=== PATIENT | male | born 1980 | race Caucasian/White ===

== ENCOUNTER 2021-11-10 01:39 | Day surgery (SDC) | payer OTHER, SELFPAY ==
[2021-11-04 15:46] VITALS: BMI 25.9
--- NOTE | 2021-11-10 10:46 | P.PNAN_ITS ---
Anes - Initial Pre Proc Eval Procedure: Operation Date: 11/10/21 13:00 Proposed Procedures p Esophagogastroduodenoscopy - Prashant Roach MD Date/Time: 11/10/21 10:46 Surgeon: Prashant Roach MD Pre Op Diagnosis: GERD, globus pharyngeus, epigastric pain Patient Data Age: 41 Gender: M Height: 1.68 m Weight: 73 kg Allergies Allergy/AdvReac Type Severity Reaction Status Date / Time No Known Allergies Allergy Unknown Verified 11/10/21 11:33 Home Medications Medication Instructions Recorded Confirmed Type omeprazole 20 mg capsule,delayed 20 mg PO DAILY 06/01/19 11/04/21 History release Patient hx anesthesia problems: none Family hx anesthesia problems: none Results Review: All pre-operative results and documents have been reviewed as part of the pre- operative evaluation. [facility] Family History Family History Father Hypertension Family history of elevated blood lipids Grandparent Hypertension Family history of elevated blood lipids Acute myocardial infarction Cerebrovascular accident Carcinoma of colon Malignant neoplasm of prostate Family history of malignant neoplasm of brain Social History Social History (Reviewed 06/09/21 @ 09:19 by Karishma Beavers [facility]) Smoking status: Unknown if ever smoked (Uses chewing tobacco) Tobacco type: smokeless tobacco Smokeless tobacco user: chewing tobacco Alcohol intake: current Alcohol use details: socially Substance use: never Substance use type: does not use Living arrangements: with family Spiritual care concerns: No Anes - Eval Final PreProcedure Day of Procedure 11/10/21 10:46 Patient weight: overweight Heart: regular rate and rhythm Lungs: clear to auscultation Airway: Mallampati scale class II Neurological: alert and oriented Last oral intake: >/= 8 hours ASA classification: II Emergent: no Anesthetic plan: proceed Anesthesia type and monitoring: general GIVS and standard monitoring Results Review: All pre-operative results and documents have been reviewed as part of the pre- operative evaluation. Informed Consent: The patient's anesthetic plan and its attendant risks and benefits were discussed with the patient/family/POA. Questions were solicited and answers provided to the satisfaction of the patient/family/POA.
[2021-11-10 11:33] VITALS: BP 141/104; PULSE 73; RESP 18; TEMP 36.4; O2SAT 99
[2021-11-10] MEDS: LACTATED RINGERS 1,000 ML 150 ML IV CONT (11:36)
--- NOTE | 2021-11-10 12:05 | PM.IMHP ---
H&P: HPI History of Present Illness Date/Time: 11/10/21 12:05 Chief Complaint: Heartburn and globus phenomenon Narrative: this is a 41-year-old white male patient with a history of heartburn and acid reflux. He has been on omeprazole 20mg p.o. daily for some time with good control of this. Over the last several months has noticed a lump in his throat. He states this does not hinder swallowing. He was seen by ENT and erythema was identified for this reason omeprazole increased to b.i.d. dose with no change in symptoms. Patient is referred today for further evaluation. He denies any weight loss. He has had no bleeding. Review of Systems Review of Systems: Review of systems noncontributory. [facility] Family History Family History Father Hypertension Family history of elevated blood lipids Grandparent Hypertension Family history of elevated blood lipids Acute myocardial infarction Cerebrovascular accident Carcinoma of colon Malignant neoplasm of prostate Family history of malignant neoplasm of brain Social History Social History Smoking status: Unknown if ever smoked (Uses chewing tobacco) Tobacco type: smokeless tobacco Smokeless tobacco user: chewing tobacco Alcohol intake: current Alcohol use details: socially Substance use: never Substance use type: does not use Living arrangements: with family Spiritual care concerns: No Meds Home Medications and Allergies Home Medications Medication Instructions Recorded Confirmed Type omeprazole 20 mg capsule,delayed 20 mg PO DAILY 06/01/19 11/04/21 History release Allergies Allergy/AdvReac Type Severity Reaction Status Date / Time No Known Allergies Allergy Unknown Verified 11/10/21 11:33 Vital Signs Vital Signs - 24 hr 11/10/21 11:33 Temperature 97.6 F Pulse Rate 73 Respiratory Rate 18 Blood Pressure 141/104 H Pulse Oximetry 99 Oxygen Delivery Room Air Exam Narrative: Physical exam reveals patient to be alert. Vital signs stable. HEENT exam is unremarkable. Patient is anicteric. Lungs are clear to auscultation and percussion. Heart is without murmur or extra sounds. Abdomen bowel sounds present soft nontender with no organomegaly. Assessment and Plan Assessment and plan (1) Gastro-esophageal reflux disease without esophagitis: Code(s): K21.9 - Gastro-esophageal reflux disease without esophagitis Status: Acute Assessment and Plan: Patient with longstanding symptoms of heartburn and GE reflux adequately treated on omeprazole 20mg p.o. daily. He recently has symptoms of globus phenomenon that did not improved on doubling this dose. He is referred now for EGD. Further recommendations will be given after endoscopy. (2) Globus pharyngeus: Code(s): R09.89 - Other specified symptoms and signs involving the circulatory and respiratory systems Status: Acute Assessment and Plan: Patient describes a lump in his throat that does not hinder swallowing. He does have a history of acid reflux. This symptoms have not improved on a doubling of his acid reflux medication. Plan for EGD if PPI therapy fails to improve this a low dose of Elavil may be of some benefit at bedtime.
[2021-11-10 12:18] VITALS: BP 115/89; PULSE 84; RESP 21; O2SAT 99
[2021-11-10 12:28] VITALS: BP 128/96; PULSE 79; RESP 15; O2SAT 98
[2021-11-10 12:38] VITALS: BP 125/75; PULSE 70; RESP 16; O2SAT 99
== END 2021-11-10 12:44 | disposition home or self-care (01) ==
PROVIDERS: PCP Family Medicine; Visit Provider Internal Medicine Gastroenterology
PROC: 0DJ08ZZ Inspection of Upper Intestinal Tract, Via Natural or Artificial Opening Endoscopic (ICD-10-PCS; CPT 43235; principal; 2021-11-10 13:00)
DX: K21.9 Gastro-esophageal reflux disease without esophagitis (principal); F45.8 Other somatoform disorders; R12 Heartburn; F17.220 Nicotine dependence, chewing tobacco, uncomplicated
CPT/HCPCS: 43235; J2704; J7120

== ENCOUNTER 2023-08-08 21:05 | Emergency (ER) | payer BC, SELFPAY ==
--- NOTE | ~2023-08-08 | XR_ITS ---
Clinical Indication: Chest pain PA and lateral views of the chest: Comparison: 02/26/2013 Findings: The lungs are clear, without evidence of focal consolidation or pleural effusion. Cardiome diastinal silhouette is within normal limits. Bones and soft tissues are unremarkable. Impression: Normal chest. Reviewed, dictated and finalized at location . Impression: Normal chest.
[2023-08-08 21:13] VITALS: BP 165/117; PULSE 81; RESP 18; TEMP 36.8; O2SAT 100
--- NOTE | 2023-08-08 21:18 | ECG_ITS ---
SEE SCANNED COPY FOR CONFIRMED REPORT MTDD
--- NOTE | 2023-08-08 23:11 | PC.NURSE ---
this rn assumed care of patient.
--- NOTE | 2023-08-08 23:20 | ED.CHESTPAIN ---
HPI - Chest Pain General Chief Complaint: Chest Pain Stated Complaint: chest pain x3, htn Time Seen by Provider: 08/08/23 23:03 History of Present Illness HPI narrative: 42-year-old male with history of hypertension and hyperlipidemia presents to emergency department for chest pressure x3 days. Patient states the pressure is located in his right anterior chest wall and is nonradiating. Denies aggravating or alleviating factors. He reports ?a little? shortness of breath. States he has been feeling more fatigued the past couple of days so he took his blood pressure today and was found to be 168/123 which alarmed him and prompted him to come to the ED. He takes metoprolol for hypertension which was recently started 2 months ago after discontinuation of lisinopril due to a cough by his PCP. States he has not followed up with his PCP since changing his medication. He is also prescribed atorvastatin but has not been taking this because ?I just have not?. States he has been taking his metoprolol daily. He denies cough, congestion, fever, hemoptysis, recent surgery hospitalizations, abdominal pain, nausea vomiting, diaphoresis, lower extremity edema, history of VTE. He denies prior personal cardiac history but does endorse family cardiac history. He does not smoke tobacco but does chew tobacco. Related Data Home Medications Medication Instructions Recorded Confirmed omeprazole 20 mg capsule,delayed 20 mg PO DAILY 06/01/19 05/20/23 release Allergies Allergy/AdvReac Type Severity Reaction Status Date / Time No Known Allergies Allergy Unknown Verified 08/08/23 21:06 [facility] Family History Family History Father Hypertension Family history of elevated blood lipids Grandparent Hypertension Family history of elevated blood lipids Acute myocardial infarction Cerebrovascular accident Carcinoma of colon Malignant neoplasm of prostate Family history of malignant neoplasm of brain Social History Social History Smoking status: Never smoker (Uses chewing tobacco) Tobacco type: smokeless tobacco Smokeless tobacco user: chewing tobacco Alcohol intake: current Alcohol use details: socially Substance use: never Substance use type: does not use Lack of Transportation: No Lack of Food: Never True Current Housing: I Have Housing Concerned About Future Housing: No Difficulty Paying Gas/Electric Bills: No Difficulty Paying for Meds: No Currently Unemployed: No Education: Associate Degree Difficulty w/ Childcare or Family Care: No Living arrangements: with family Spiritual care concerns: No Course Vital Signs Vital signs: Vital Signs Temperature 98.2 F 08/08/23 21:13 Pulse Rate 81 08/08/23 21:13 Respiratory Rate 18 08/08/23 21:13 Blood Pressure 165/117 H 08/08/23 21:13 Pulse Oximetry 100 08/08/23 21:13 Oxygen Delivery Room Air 08/08/23 21:13 Temperature 98.2 F 08/08/23 21:13 Pulse Rate 65 08/09/23 01:09 Respiratory Rate 18 08/09/23 01:31 Blood Pressure 127/95 H 08/09/23 01:31 Pulse Oximetry 97 08/09/23 01:31 Oxygen Delivery Room Air 08/08/23 23:56 MDM - Chest Pain MDM Narrative Medical decision making narrative: 42-year-old male with history of hypertension and hyperlipidemia presents to emergency department for chest pressure x3 days. Triage vital significant for hypertension of 165/117, otherwise unremarkable. Patient is well-appearing on exam, see above. EKG shows sinus rhythm with a rate of 60 ppm, lad, nonspecific T-wave inversions, no ST elevations or depressions. Initial troponin negative. CBC and chemistries are unremarkable. Chest x-ray shows no acute cardiopulmonary disease. He is PERC negative. Labs and imaging discussed with the patient. His blood pressure improved to 127/90 without intervention. He is reque
[2023-08-08 23:49] VITALS: BP 141/100; PULSE 58; RESP 20; O2SAT 95
[2023-08-08 23:56] VITALS: O2SAT 100
[2023-08-09] VITALS (7 sets, daily range): BP systolic 127–142; BP diastolic 95–105; PULSE 54–68; RESP 9–25; O2SAT 95–99
[2023-08-09 00:07] LABS: Basophils Percent Auto 0.4 % (0.2-1.2); Eosinophils Absolute Auto 0.2 K/mm3 (0-0.3); Eosinophils Percent Auto 2.1 % (0-4.4); Hematocrit 48.6 % (42.0-52.0); Hemoglobin 16.2 g/dL (14.0-18.0); Immature Granulocyte Absolute 0.03 K/mm3 (0.00-0.031); Immature Granulocyte Percent A 0.3 % (0-0.5); Lymphocytes Absolute Auto 2.84 K/mm3 (0.9-3.2); Lymphocytes Percent Auto 31.7 % (18.3-44.2); Mean Corpuscular HGB Conc 33.3 g/dl (32-36); Mean Corpuscular Hemoglobin 30.4 pg (26-34); Mean Corpuscular Volume 91.2 fl (80-100); Mean Platelet Volume 9.8 fl (7.4-10.4); Monocytes Absolute Auto 0.9 K/mm3 (0.1-0.6); Monocytes Percent Auto 9.8 % (2.6-8.5); Neutrophils Percent Auto 55.7 % (45.5-73.1); Platelet Count Result 251 k/mm3 (150-375); Red Blood Count 5.33 M/mm3 (4.6-6.20); Red Cell Distribution Width 11.9 % (11.5-14.5)
[2023-08-09 00:25] LABS: Alanine Aminotransferase 42 U/L (6-50); Albumin Level 4.6 g/dL (3.5-5.1); Alkaline Phosphatase 71 U/L (38-126); Anion Gap 7 mmol/L (4-12); Aspartate Amino Transferase 34 U/L (17-59); Bilirubin,Total 0.6 mg/dL (0.2-1.3); Blood Urea Nitrogen 16 mg/dL (9-20); Calcium 9.4 mg/dL (8.4-10.2); Carbon Dioxide 26 mmol/L (22-30); Chloride 104 mmol/L (98-107); Estimated CRCL calculation 98 ml/min; Estimated Glomerular Filt Rate > 60; Glucose 98 mg/dL (65-110); Lipase 47 U/L (23-300); Potassium 4.1 mmol/L (3.4-5.0); Sodium 137 mmol/L (137-145)
[2023-08-09 00:37] LABS: NT Pro B Type Natriuretic Pept 28 pg/mL (19.9-100); Troponin I < 0.012 ng/mL (0.000-0.034)
[2023-08-09 02:06] LABS: Partial Thromboplastin Time 25.3 Seconds (22.3-36.8)
[2023-08-09 02:34] LABS: Prothrombin Time 13.3 Seconds (11.1-14.7)
== END 2023-08-09 02:06 | disposition home or self-care (01) ==
PROVIDERS: Emergency Provider Physician Assistant; PCP Family Medicine
DX: R07.89 Other chest pain (principal); E78.5 Hyperlipidemia, unspecified; I10 Essential (primary) hypertension; F17.220 Nicotine dependence, chewing tobacco, uncomplicated; T46.6X6A Underdosing of antihyperlipidemic and antiarteriosclerotic drugs, initial encounter; Z91.128 Patient's intentional underdosing of medication regimen for other reason; R94.31 Abnormal electrocardiogram [ECG] [EKG]
CPT/HCPCS: 36415; 71046; 80053; 83690; 83880; 84484; 85025; 85610; 85730; 93005; 99284

== ENCOUNTER 2024-11-24 13:21 | Emergency (ER) | payer BC, SELFPAY ==
[2024-11-24] VITALS (8 sets, daily range): BP systolic 109–162; BP diastolic 86–99; PULSE 57–96; RESP 15–21; TEMP 35.9; O2SAT 97–99
--- NOTE | ~2024-11-24 | XR_ITS ---
EXAMINATION: XR chest 2V, 11/24/2024 14:01 CDT HISTORY: chest pressure COMPARISON: No comparisons available. Technique: 2 views obtained. Findings: The lungs are clear, no effusion. No pneumothorax. Heart is normal size. Mediastinal and hilar contours are within normal limits. Bony thorax no acute abnormality. Impression: No acute cardiopulmonary abnormality. Reviewed, dictated and finalized at location A. Impression: No acute cardiopulmonary abnormality.
--- NOTE | 2024-11-24 13:22 | ECG_ITS ---
Test Date: 2024-11-24 13:27:30 Measurements Intervals Roland Rate: 70 P: 15 FL: 149 QRS: 5 QRSD: 98 T: 0 QT: 370 QTc: 399 Interpretive Statements SINUS RHYTHM VOLTAGE CRITERIA FOR LVH MINIMAL Q WAVES- HIGH LATERAL LEADS BORDERLINE T WAVE ABNORMALITY- INFERIOR LEADS BASELINE ARTIFACT- I, II, AVR, AVL, V1, V4-V6 BORDERLINE ECG No previous ECG available for comparison Electronically Signed On 11-24-2024 13:30:58 CDT by Jacob Quinonez D.O.
--- OUTSIDE RECORDS SUMMARY | 2024-11-24 13:23 | XMS_ITS | Encounter Summary ---
Author Organization [facility] Healthcare Address [address] [place] [address] Care Team Providers Care Magnetic Resonance Technologist Name Role Phone Yamilex Car Primary Care Provider Encounter Details Date Type Department Care Team (Late st Contact Info) Description 07/24/2020 Telephone [facility] [id number] [place] [address] Nisha Del Real RT Social History Tobacco Use Types Packs/Day Years Used Date Smoking Tobacco: Never Smokeless Tobacco: Current Chew Sex and Gender Information Value Date Recorded Sex Assigned at Not on file Legal Sex Male 9:56 PM CDT Gender Identity Not on file Sexual Orientation Not on file documented as of this encounter Plan of Treatment Not on file documented as of this encounter Visit Diagnoses Not on filedocumented in this encounter Care Teams Magnetic Resonance Technologist Relationship Specialty Start Date End Date Yamilex Car PA [address] [place] [address] PCP - General Physician Gym Manager 06/10/20 documented as of this encounter
--- OUTSIDE RECORDS SUMMARY | 2024-11-24 13:23 | XMS_ITS | Clinical Summary ---
Author Organization [facility] Address [address] [place] [address] Care Team Providers Care Rotor Casting Machine Operator Name Role Phone Yamilex Car Primary Care Provider Allergies No known active allergies Medications atorvastatin (LIPITOR) 10 mg tablet Take 1 tablet (10 mg total) by mouth daily 03/31/2020 Active omeprazole (PriLOSEC) 20 mg capsule Take 1 capsule (20 mg total) by mouth daily Active hydroCHLOROthia zide 12.5 mg tablet 09/10/2023 Active Active Problems Problem Noted Date Diagnosed Date Dietary counseling 10/07/2020 Family history of premature CAD 07/08/2020 Pure hypercholesterolemia 07/08/2020 Surgical History Surgery Date Site/Laterality Comments NO PAST SURGERIES Medical History Medical History Date Comments Hyperlipidemia Acid indigestion Family History Medical History Relation Name Comments No Known Problems Father Heart disease Father's Sister Cancer Mother Heart attack Paternal Grandfather No Known Problems Sister Relation Name Status Comments Father Alive Father's Sister Alive Mother (Age 55) Paternal Grandfather (Age 71) Sister Alive Social History Tobacco Use Types Packs/Day Years Used Date Smoking Tobacco: Never Smokeless Tobacco: Current Chew Sex and Gender Information Value Date Recorded Sex Assigned at Not on file Legal Sex Male 9:56 PM CDT Gender Identity Not on file Sexual Orientation Not on file Obstetrics History Last Filed Vital Signs Vital Sign Reading Time Taken Comments Blood Pressure 140/108 09/11/2023 9:56 AM CDT at [id number] this morning before taking BP med - took med a half hour ago. New BP med started yesterday. Pulse 57 09/11/2023 9:56 AM CDT Temperature 36.4 C (97.6 F) 09/11/2023 9:56 AM CDT Respiratory Rate 16 09/11/2023 9:56 AM CDT Oxygen Saturation 97% 09/11/2023 9:5 6 AM CDT Inhaled Oxygen Concentration - - Weight 81.3 kg (179 lb 3.2 oz) 09/11/2023 9:56 AM CDT Height 170.2 cm (5' 7) 09/11/2023 9:56 AM CDT Body Mass Index 28.07 09/11/2023 9:56 AM CDT Plan of Treatment Health Maintenance Due Date Last Done Comments Depression Screening 1981 Hepatitis C Screening 1981 DTaP/Tdap/Td Vaccine (1 - Tdap) 1992 Varicella Vaccines (1 of 2 - 13+ 2-dose series) 1994 Regular Well Visit/Exam 18-64 10/31/1999 HPV Vaccines (1 - 3-dose SCD M series) 2008 Influenza Vaccine (#1) 2024 Hepatitis B Screening Completed 05/16/2013 , 12/09/2012, 11/07/2012 Pneumococcal vaccine <65 Aged Out No longer eligible based on patient's age to complete this topic Insurance [employer] BLUE ACCESS [place] Care Teams Rotor Casting Machine Operator Relationship Specialty Start Date End Date Yamilex Car PA [address] [place] [address] PCP - General Physician Histotechnologist 06/10/20
--- OUTSIDE RECORDS SUMMARY | 2024-11-24 13:23 | XMS_ITS | Encounter Summary ---
Author Organization [facility] Healthcare Address [address] [place] [address] Care Team Providers Care Stock Order Lister Name Role Phone Yamilex Car Primary Care Provider Encounter Details Date Type Department Care Team (Late st Contact Info) Description 08/07/2020 Telephone [facility] [id number] [place] [address] Nisha Del Real RT Social History Tobacco [...] on filedocumented in this encounter Care Teams Stock Order Lister Relationship Specialty Start Date End Date Yamilex Car PA [address] [place] [address] PCP - General Physician Wet Inspector Optical Glass 06/10/20 documented as of this encounter
[2024-11-24 13:43] LABS: Hematocrit 48.8 % (42.0-52.0); Hemoglobin 16.3 g/dL (14.0-18.0); Immature Granulocyte Percent A 0.3 % (0-0.5); Lymphocytes Absolute Auto 1.93 K/mm3 (0.9-3.2); Mean Corpuscular HGB Conc 33.4 g/dl (32-36); Mean Corpuscular Hemoglobin 30.2 pg (26-34); Mean Corpuscular Volume 90.5 fl (80-100); Nucleated Red Blood Cells Absolute Auto 0.000 K/mm3 (0.0-0.012); Nucleated Red Blood Cells Perc 0.0 % (0.0-0.2); Platelet Count Result 246 k/mm3 (150-375); Red Blood Count 5.39 M/mm3 (4.6-6.20); White Blood Count 7.8 K/mm3 (4.5-10.0)
[2024-11-24 13:58] LABS: INR 1.0; Partial Thromboplastin Time 24.6 Seconds (22.3-36.8); Prothrombin Time 13.2 Seconds (11.1-14.7)
[2024-11-24 14:02] LABS: Alanine Aminotransferase 26 U/L (6-50); Albumin Level 4.4 g/dL (3.5-5.1); Alkaline Phosphatase 67 U/L (38-126); Anion Gap 10 mmol/L (4-12); Aspartate Amino Transferase 25 U/L (17-59); Bilirubin,Total 0.6 mg/dL (0.2-1.3); Blood Urea Nitrogen 20 mg/dL (9-20); Calcium 9.4 mg/dL (8.4-10.2); Carbon Dioxide 27 mmol/L (22-30); Chloride 103 mmol/L (98-107); Estimated CRCL calculation 70 ml/min; Estimated Glomerular Filt Rate > 60; Glucose 80 mg/dL (65-110); Lipase 53 U/L (23-300); Potassium 4.0 mmol/L (3.4-5.0); Sodium 140 mmol/L (137-145); Total Protein 7.7 g/dL (6.3-8.2)
[2024-11-24 14:09] LABS: Troponin I < 0.012 ng/mL (0.000-0.034)
--- OUTSIDE RECORDS SUMMARY | 2024-11-24 14:28 | XMS_ITS | Clinical Summary ---
Author Organization [facility] Address [address] [place] [address] Care Team Providers Care Circus Supervisor Name Role Phone Yamilex Car Primary Care [...] Pressure 140/108 09/11/2023 9:56 AM CDT at [id number] this morning before taking BP med - [...] patient's age to complete this topic Insurance [employer] BLUE ACCESS [place] Care Teams Circus Supervisor Relationship Specialty Start Date End Date Yamilex Car PA [address] [place] [address] PCP - General Physician Operations Business Partner 06/10/20
--- OUTSIDE RECORDS SUMMARY | 2024-11-24 14:28 | XMS_ITS | Encounter Summary ---
Author Organization [facility] Healthcare Address [address] [place] [id number] Care Team Providers Care Commutator Undercutter Name Role Phone Yamilex Car Primary Care Provider Encounter Details Date Type Department Care Team (Late st Contact Info) Description 08/07/2020 Telephone [facility] [id number] [place] [address] Nisha Del Real RT Social History Tobacco [...] on filedocumented in this encounter Care Teams Commutator Undercutter Relationship Specialty Start Date End Date Yamilex Car PA [address] [place] [address] PCP - General Physician Head Coach 06/10/20 documented as of this encounter
--- OUTSIDE RECORDS SUMMARY | 2024-11-24 14:28 | XMS_ITS | Encounter Summary ---
Author Organization [facility] Healthcare Address [address] [place] [address] Care Team Providers Care Surveillance Monitor Name Role Phone Yamilex Car Primary Care Provider Encounter Details Date Type Department Care Team (Late st Contact Info) Description 07/24/2020 Telephone [facility] [address] [place] [address] Nisha Del Real RT Social History Tobacco [...] on filedocumented in this encounter Care Teams Surveillance Monitor Relationship Specialty Start Date End Date Yamilex Car PA [address] [place] [address] PCP - General Physician Solar Consultant 06/10/20 documented as of this encounter
--- NOTE | 2024-11-24 15:02 | ED.GENADULT ---
HPI - General Adult General Chief complaint: Chest Pain Stated complaint: chest pressure, high BP Time Seen by Provider: 11/24/24 14:20 History of Present Illness HPI narrative: 44-year-old male present to the emergency department for evaluation for chest tightness. Patient states he was having some chest tightness that started this morning. Patient reports pain is worsened when taking a breath. Patient denies any sharp pain. Patient denies any radiation the tightness to his back neck or arm. Patient does have history of high blood pressure does take his blood pressure medications. Patient does report prior history of high cholesterol but does not take cholesterol medications. Patient is not diabetic. Patient has no prior history of coronary artery disease and has never had a stress test. Patient does not smoke but does chew tobacco. Related Data Home Medications ?Medication ?Instructions ?Recorded ?Confirmed ?Last Taken ?Type omeprazole 20 mg capsule,delayed 20 mg PO DAILY 06/01/19 01/18/24 11/09/21 History release Allergies Allergy/AdvReac Type Severity Reaction Status Date / Time No Known Allergies Allergy Unknown Verified 11/24/24 13:34 Review of Systems Review of Systems: All systems reviewed & are unremarkable except as noted in HPI and below PMFSH Past Medical History Medical History (Updated 11/24/24 @ 18:00 by Daniel Smith MD) Tonsil asymmetry Family History Family History Father Hypertension Family history of elevated blood lipids Grandparent Hypertension Family history of elevated blood lipids Acute myocardial infarction Cerebrovascular accident Carcinoma of colon Malignant neoplasm of prostate Family history of malignant neoplasm of brain Social History Social History (Updated 07/10/24 @ 09:19 by Barbie Young) Social History: Caffeine-coffee Smoking status: Never smoker (Uses chewing tobacco) Tobacco type: smokeless tobacco Smokeless tobacco user: chewing tobacco Alcohol intake: current Alcohol use details: socially Substance use: never Substance use type: does not use Do You Feel Safe in your Home?: Yes Lack of Transportation: No Lack of Food: Never True Current Housing: I Have Housing Concerned About Future Housing: No Difficulty Paying Gas/Electric Bills: No Difficulty Paying for Meds: No Currently Unemployed: No Education: Associate Degree Difficulty w/ Childcare or Family Care: No Living arrangements: with family Spiritual care concerns: No Exam Narrative: APPEARANCE: Well appearing, no pain, no distress, well-nourished. HEAD: normocephalic, atraumatic. EYES: PERRLA/EOMI, conjunctivae clear. NOSE: Normal no drainage EARS:TMS clear with good light reflex. THROAT: Pharynx clear, no exudate. NECK: Supple. No adenopathy, no masses. RESPIRATORY: Airway patent, respirations nonlabored. Clear to auscultation bilaterally, no rales, rhonchi, wheezing. CARDIOVASCULAR: Regular rate and rhythm without murmurs rubs or gallops. ABDOMINAL: Soft, nontender, nondistended, normal bowel sounds MUSCULOSKELETAL: Reproducible chest wall tenderness to palpation NEURO: Alert. Cranial nerves II through XII intact. Good gait. Good coordination SKIN: Warm, dry. Normal Color Course Vital Signs Vital signs: Vital Signs Temperature 96.7 F L 11/24/24 13:34 Pulse Rate 96 11/24/24 13:34 Respiratory Rate 20 11/24/24 13:34 Blood Pressure 162/99 H 11/24/24 13:34 Pulse Oximetry 98 11/24/24 13:34 Oxygen Delivery Room Air 11/24/24 13:34 Temperature 96.7 F L 11/24/24 13:34 Pulse Rate 60 11/24/24 17:01 Respiratory Rate 15 11/24/24 17:01 Blood Pressure 109/86 11/24/24 17:01 Pulse Oximetry 97 11/24/24 17:01 Oxygen Delivery Room Air 11/24/24 14:35 Medical Decision Making [facility] Narrative Medical decision making narrative: 44-year-old male presenting to the emergency department for evaluation for chest tightness. Patient states symptoms were improved with Toradol and an albuterol treatment. Patient is currently afebrile with no leukocytosis and a hemoglobin of 16.3. Patient's INR is 1.0 D-dimer was not elevated. Patient had negative serial troponins and no acute abnormalities on his CMP. As patient was improved on re-evaluation patient was comfortable plan for discharge and close follow-up with primary care physician for additional outpatient cardiac testing such as a stress test. Low concern for ACS, pneumonia, pulmonary embolism. Patient's symptoms may be secondary to underlying viral etiology versus seasonal allergies. Differential Diagnosis Differential Diagnosis: COVID, RSV, influenza, pneumonia, pneumothorax, ACS, pulmonary embolism, seasonal allergies my asthma, COPD Vital Signs Vital Signs: Vital Signs Temperature 96.7 F L 11/24/24 13:34 Pulse Rate 96 11/24/24 13:34 Respiratory Rate 20 11/24/24 13:34 Blood Pressure 162/99 H 11/24/24 13:34 Pulse Oximetry 98 11/24/24 13:34 Oxygen Delivery Room Air 11/24/24 13:34 Temperature 96.7 F L 11/24/24 13:34 Pulse Rate 60 11/24/24 17:01 Respiratory Rate 15 11/24/24 17:01 Blood Pressure 109/86 11/24/24 17:01 Pulse Oximetry 97 11/24/24 17:01 Oxygen Delivery Room Air 11/24/24 14:35 Lab Data Lab results reviewed: Yes I reviewed the patient's lab results. 11/24/24 13:35 11/24/24 13:35 Labs: Lab Results 11/24/24 11/24/24 Range/Units 13:35 16:50 WBC 7.8 (4.5-10.0) K/mm3 RBC 5.39 (4.6-6.20) M/mm3 Hgb 16.3 (14.0-18.0) g/dL Hct 48.8 (42.0-52.0) % MCV 90.5 (80-100) fl MCH 30.2 (26-34) pg MCHC 33.4 (32-36) g/dl RDW 12.0 (11.5-14.5) % Plt Count 246 (150-375) k/mm3 MPV 9.5 (7.4-10.4) fl Immature Gran % (Auto) 0.3 (0-0.5) % Neut % (Auto) 62.6 (45.5-73.1) % Lymph % (Auto) 24.9 (18.3-44.2) % [place] % (Auto) 9.9 H (2.6-8.5) % Eos % (Auto) 1.9 (0-4.4) % Baso % (Auto) 0.4 (0.2-1.2) % Lymph # (Auto) 1.93 (0.9-3.2) K/mm3 [place] # (Auto) 0.8 H (0.1-0.6) K/mm3 Eos # (Auto) 0.2 (0-0.3) K/mm3 Baso # (Auto) 0.0 (0.0-0.1) K/mm3 Abs Immat Gran (auto) 0.02 (0.00-0.031) K/mm3 Absolute Neuts (auto) 4.9 (1.3-6.7) K/mm3 Absolute Nucleated RBC 0.000 (0.0-0.012) K/mm3 Nucleated RBC % 0.0 (0.0-0.2) % PT 13.2 (11.1-14.7) Seconds INR 1.0 APTT 24.6 (22.3-36.8) Seconds D-Dimer < 0.27 (<0.48) ug/mL Sodium 140 (137-145) mmol/L Potassium 4.0 (3.4-5.0) mmol/L Chloride 103 (98-107) mmol/L Carbon Dioxide 27 (22-30) mmol/L Anion Gap 10 (4-12) mmol/L BUN 20 (9-20) mg/dL Creatinine 1.09 (0.7-1.3) mg/dL Estim Creat Clear Calc 70 ml/min Estimated GFR > 60 (59 - ) Glucose 80 (65-110) mg/dL Calcium 9.4 (8.4-10.2) mg/dL Total Bilirubin 0.6 (0.2-1.3) mg/dL AST 25 (17-59) U/L ALT 26 (6-50) U/L Alkaline Phosphatase 67 (38-126) U/L Troponin I < 0.012 < 0.012 (0.000-0.034) ng/mL Total Protein 7.7 (6.3-8.2) g/dL Albumin 4.4 (3.5-5.1) g/dL Lipase 53 (23-300) U/L Imaging Data Radiologist's impression: Impressions Chest X-Ray 11/24/24 14:28 Impression: No acute cardiopulmonary abnormality. ECG Data EKG #1: EKG Interpretation: bradycardia, sinus rhythm, no ectopy, non-specific ST changes, normal QRS, normal QT and NL axis Discharge Plan Discharge Clinical Impression: Chest tightness Patient Disposition: Home Condition: Stable Instructions: Antibiotic Form, Chest Pain (ED) Additional Instructions: Albuterol inhaler for shortness of breath, ibuprofen for pain control. Have close follow-up with your primary care physician for additional outpatient cardiac testing. Patient Language: Frisian Prescriptions: New albuterol sulfate 90 mcg/actuation HFA aerosol inhaler 1 puff inhalation QID Qty: 6.7 0RF No Action omeprazole 20 mg capsule,delayed release(DR/EC) 20 mg PO DAILY metoprolol succinate 50 mg tablet extended release 24 hr 50 mg PO DAILY Qty: 30 0RF Rx Instructions: LAST REFILL, NEEDS APPOINTMENT Follow-up/Referrals: Amparo Fam DO [Primary Care Provider, [facility]] Quality HEART score for chest pain patients History: slightly suspicious ECG: normal Age: < or = to 45 years Risk factors: 1 or 2 risk factors Troponin: < or = to 1x normal limit Heart score: 1
[2024-11-24] MEDS: ALBUTEROL SULFATE NEB 2.5 MG/3 ML INH 5 MG INHALATION (15:05)
[2024-11-24] MEDS: KETOROLAC 30 MG/ML VIAL (*BKC) IM (16:11)
--- NOTE | 2024-11-24 16:45 | ECG_ITS ---
Test Date: 2024-11-24 16:49:19 Measurements Intervals [place] Rate: 50 P: 7 MT: 169 QRS: 3 QRSD: 94 T: -2 QT: 394 QTc: 362 Interpretive Statements SINUS BRADYCARDIA WITH SINUS ARRHYTHMIA VOLTAGE CRITERIA FOR LVH MINIMAL Q WAVES- HIGH LATERAL LEADS BORDERLINE ST-T WAVE ABNORMALITY- INFERIOR LEADS BASELINE ARTIFACT- I, II, AVR, AVL, AVF BORDERLINE ECG Compared to ECG 11/24/2024 13:27:30 HEART RATE HAS DECREASED Electronically Signed On 11-24-2024 19:37:07 CDT by Jacob Quinonez D.O.
[2024-11-24 17:19] LABS: Troponin I < 0.012 ng/mL (0.000-0.034)
== END 2024-11-24 18:12 | disposition home or self-care (01) ==
PROVIDERS: Emergency Medicine; Emergency Provider Emergency Medicine; PCP Family Medicine
DX: R07.89 Other chest pain (principal); I10 Essential (primary) hypertension; F17.220 Nicotine dependence, chewing tobacco, uncomplicated; Z79.899 Other long term (current) drug therapy; R00.1 Bradycardia, unspecified; R94.31 Abnormal electrocardiogram [ECG] [EKG]
CPT/HCPCS: 36415; 71046; 80053; 83690; 84484; 85025; 85380; 85610; 85730; 93005; 94640; 96372; 99284; J1885